=== PATIENT | female | born 1950 | race Caucasian/White ===

== ENCOUNTER 2016-11-08 16:59 | Inpatient (IN) | payer OTHER ==
[~2016-11-08] VITALS: Ht 172.7 cm; Wt 107.0 kg
[~2016-11-08 16:59] MED LIST: Ecotrin PO; KlonoPIN PO; LOPRESSOR50 MG PO; Levaquin PO; NEXIUM40 MG PO; PLAVIX75 MG PO; Plavix PO; SERTRALINE HCL100 MG PO; SYNTHROID125 MCG PO; TOPAMAX100 MG PO; Ultram PO; VALIUM5 MG PO; ZESTORETIC 20-1 EAC1 PO
[2016-11-08 17:35] LABS: HEMATOCRIT 37.5 % (36.0-46.0); MCH 30.3 PG (29.0-34.0); MCHC 32.8 G/DL (30.0-36.0); MCV 92.4 FL (83-99); MEAN PLAT.VOLUME 9.1 uM^3 (9.5-12.4); PLATELET COUNT 254 K/uL (156-360); RBC DIS.WIDTH-CV 13.9 % (11.8-14.6); RBC DIS.WIDTH-SD 47.3 % (39-53); RED BLOOD COUNT 4.06 M/uL (3.80-5.20); WHITE BLOOD COUNT 22.2 K/uL (4.1-10.2)
[2016-11-08 17:48] LABS: CHLORIDE 101 mEq/L (99-109); POTASSIUM 4.3 mEq/L (3.7-5.4); SODIUM 140 mEq/L (136-147)
[2016-11-08 17:50] LABS: GLUCOSE 107 mg/dL (70-99)
[2016-11-08 17:51] LABS: ANION GAP 10 MEQ/L (2-14)
[2016-11-08 17:53] LABS: GFR ESTIMATE (CALCULATED) 53 mL/min/
[2016-11-08 17:54] LABS: UREA NITROGEN (BUN) 24 mg/dL (9-23)
[2016-11-08 17:58] LABS: TROP-I INTERPRETATION NEGATIVE; TROPONIN-I < 0.01 ng/mL (0.0-0.30)
[2016-11-08 20:20] LABS: D-DIMER ELISA 0.45 mg/L FEU (< 0.57)
[2016-11-08 21:26] LABS: INFLUENZA A VIRAL ANTIGEN NEGATIVE; INFLUENZA B VIRAL ANTIGEN NEGATIVE
[2016-11-08] MEDS ORDERED: METOPROLOL SUCC25 MG PO (22:45)
[2016-11-08] MEDS ORDERED: ECOTRIN325 MG PO (22:47)
[2016-11-08] MEDS ORDERED: GLUCOSAMINE CH1 EAC2 PO (22:47)
[2016-11-08] MEDS ORDERED: PLAVIX75 MG PO (22:47)
[2016-11-08] MEDS ORDERED: NEXIUM40 MG PO (22:48)
[2016-11-08] MEDS ORDERED: SIMVASTATIN40 MG PO (22:49)
[2016-11-08] MEDS ORDERED: MELOXICAM15 MG PO (22:49)
[2016-11-09 00:36] LABS: TROP-I INTERPRETATION NEGATIVE; TROPONIN-I < 0.01 ng/mL (0.0-0.30)
[2016-11-09 01:00] VITALS: BP 103/67
[2016-11-09 03:08] VITALS: BP 105/57
[2016-11-09 08:44] VITALS: BP 109/73
[2016-11-09 08:58] LABS: TROP-I INTERPRETATION NEGATIVE; TROPONIN-I < 0.01 ng/mL (0.0-0.30)
[2016-11-09 08:59] LABS: HEMATOCRIT 34.6 % (36.0-46.0); MCH 30.1 PG (29.0-34.0); MCHC 31.8 G/DL (30.0-36.0); MCV 94.5 FL (83-99); MEAN PLAT.VOLUME 9.4 uM^3 (9.5-12.4); PLATELET COUNT 222 K/uL (156-360); RBC DIS.WIDTH-CV 14.6 % (11.8-14.6); RBC DIS.WIDTH-SD 51.2 % (39-53); RED BLOOD COUNT 3.66 M/uL (3.80-5.20)
[2016-11-09 09:12] LABS: WHITE BLOOD COUNT 13.2 K/uL (4.1-10.2)
[2016-11-09] MEDS ORDERED: PROVENTIL HFA6.7 GM IH (11:32)
[2016-11-09] MEDS ORDERED: NITROSTAT0.4 MG SL (11:32)
[2016-11-09] MEDS ORDERED: AZITHROMYCIN500 M1 PO ×2 (11:32→11:35)
[2016-11-09] MEDS ORDERED: BENZONATATE200 MG PO (11:36)
[2016-11-09 12:31] VITALS: BP 90/60
[2016-11-09 14:33] LABS: EOSINOPHIL (%) 0.3 % (0-5); HEMATOCRIT 35.9 % (36.0-46.0); IMMATURE GRANULOCYTE (%) 0.7 % (0.0-0.7); IMMATURE GRANULOCYTE COUNT 0.1 K/uL; INSTRUMENT ABS NEUTROPHIL CT 10.8 K/uL; LYMPHOCYTE COUNT 0.7 K/uL (1.0-2.8); MCH 30.3 PG (29.0-34.0); MCHC 32.6 G/DL (30.0-36.0); MEAN PLAT.VOLUME 8.9 uM^3 (9.5-12.4); MONOCYTE (%) 0.6 % (3-12); MONOCYTE COUNT 0.1 K/uL (0-0.8); NEUTROPHIL (%) 92.1 % (45-76); NEUTROPHIL COUNT 10.8 K/uL (1.8-6.4); PLATELET COUNT 239 K/uL (156-360); RBC DIS.WIDTH-CV 14.5 % (11.8-14.6); RBC DIS.WIDTH-SD 49.9 % (39-53); RED BLOOD COUNT 3.86 M/uL (3.80-5.20); WHITE BLOOD COUNT 11.7 K/uL (4.1-10.2)
[2016-11-09 16:00] VITALS: BP 119/63
[2016-11-09 19:33] VITALS: BP 130/75
[2016-11-09 23:14] LABS: ADD MIUA? YES; BILIRUBIN NEGATIVE; BLOOD SMALL; COLOR YELLOW ((YELLOW)); GLUCOSE (STRIP) NEGATIVE; KETONES NEGATIVE; LEUKOCYTES TRACE; NITRITE NEGATIVE; PROTEIN (STRIP) NEGATIVE; UROBILINOGEN 0.2 MG/DL (0.2-1.0)
[2016-11-09 23:17] LABS: BACTERIA RARE /HPF; EPITHELIAL CELLS 1+ /HPF; MUCUS TRACE /LPF; RED BLOOD CELLS 0-5 /HPF (0-5); UCUL ADDED? NO; WHITE BLOOD CELLS 0-5 /HPF (0-5)
[2016-11-10] VITALS (10 sets, daily range): BP systolic 113–178; BP diastolic 65–90
[2016-11-10 09:06] LABS: HEMATOCRIT 34.2 % (36.0-46.0); MCH 29.8 PG (29.0-34.0); MCHC 32.2 G/DL (30.0-36.0); MCV 92.7 FL (83-99); MEAN PLAT.VOLUME 9.9 uM^3 (9.5-12.4); PLATELET COUNT 237 K/uL (156-360); RBC DIS.WIDTH-CV 14.2 % (11.8-14.6); RBC DIS.WIDTH-SD 48.7 % (39-53); RED BLOOD COUNT 3.69 M/uL (3.80-5.20); WHITE BLOOD COUNT 14.8 K/uL (4.1-10.2)
[2016-11-10 10:33] LABS: BASE EXCESS 4.7 mEq/L (-3 to +3); BICARBONATE 29.2 mEq/L (22-26); CARBOXY HGB 2.9 % (0-5); COMMENTS - BLOOD GASES A+C+; DEVICE NC; METHEMOGLOBIN 1.6 % (0-1.5); O2 FLOW 1 L/MIN; PCO2 42 mm Hg (35-45); PO2 61 mm Hg (80-100); SITE RR; pH 7.45 (7.35-7.45)
[2016-11-10 10:34] LABS: TOTAL RESP RATE 16 resp/min
[2016-11-11 03:39] VITALS: BP 147/84
[2016-11-11 07:15] VITALS: BP 130/79
[2016-11-11 07:28] LABS: EOSINOPHIL (%) 0.1 % (0-5); HEMATOCRIT 35.3 % (36.0-46.0); IMMATURE GRANULOCYTE (%) 1.1 % (0.0-0.7); IMMATURE GRANULOCYTE COUNT 0.2 K/uL; INSTRUMENT ABS NEUTROPHIL CT 13.6 K/uL; LYMPHOCYTE COUNT 1.5 K/uL (1.0-2.8); MCH 29.9 PG (29.0-34.0); MCHC 32.6 G/DL (30.0-36.0); MCV 91.7 FL (83-99); MEAN PLAT.VOLUME 9.8 uM^3 (9.5-12.4); MONOCYTE (%) 3.7 % (3-12); MONOCYTE COUNT 0.6 K/uL (0-0.8); NEUTROPHIL (%) 85.6 % (45-76); NEUTROPHIL COUNT 13.6 K/uL (1.8-6.4); PLATELET COUNT 277 K/uL (156-360); RBC DIS.WIDTH-CV 14.4 % (11.8-14.6); RBC DIS.WIDTH-SD 48.5 % (39-53); RED BLOOD COUNT 3.85 M/uL (3.80-5.20); WHITE BLOOD COUNT 15.9 K/uL (4.1-10.2)
[2016-11-11 07:44] LABS: ALKALINE PHOSPHATASE 102 IU/L (3-129); ANION GAP 10 MEQ/L (2-14); CHLORIDE 103 MEQ/L (99-109); GFR ESTIMATE (CALCULATED) > 59 mL/min/; GLUCOSE 119 mg/dL (70-99); POTASSIUM 4.6 MEQ/L (3.7-5.4); SAMPLE HEMOLYSIS CHECK 0; SAMPLE ICTERIC CHECK 0; SAMPLE LIPEMIA CHECK 0; SODIUM 139 MEQ/L (136-147); TOTAL BILIRUBIN 0.4 MG/DL (0.0-1.0); UREA NITROGEN (BUN) 22 mg/dL (9-23)
[2016-11-11] MEDS ORDERED: PROVENTIL HFA6.7 GM IH (10:48)
[2016-11-11] MEDS ORDERED: ADVAIR HFA120 INHALA IH (10:48)
[2016-11-11] MEDS ORDERED: PREDNISONE10 MG PO (10:48)
[2016-11-11] MEDS ORDERED: SPIRIVA RESPIMAT4 GM IH (10:48)
[2016-11-11] MEDS ORDERED: LEVAQUIN750 MG PO (10:48)
[2016-11-11 10:55] VITALS: BP 164/86
== END 2016-11-11 15:26 | disposition home or self-care (01) | DRG 871 ==
LOC: EME 16:59 → EDOF 22:08 → 5WEST 22:08 → 2EAST 11-09 13:53 → 5WEST 11-09 13:53 → 2EAST 11-09 15:49
PROVIDERS: Emergency Medicine; Family Medicine; Hospitalist; Nurse Practitioner Adult Health
DX: A41.9 Sepsis, unspecified organism (principal); J96.01 Acute respiratory failure with hypoxia; J44.1 Chronic obstructive pulmonary disease with (acute) exacerbation; F32.9 Major depressive disorder, single episode, unspecified; E78.5 Hyperlipidemia, unspecified; K21.9 Gastro-esophageal reflux disease without esophagitis; Z86.73 Personal history of transient ischemic attack (TIA), and cerebral infarction without residual deficits; E03.9 Hypothyroidism, unspecified; Z88.8 Allergy status to other drugs, medicaments and biological substances; Z91.040 Latex allergy status; Z79.82 Long term (current) use of aspirin; R01.1 Cardiac murmur, unspecified; E83.52 Hypercalcemia; R79.89 Other specified abnormal findings of blood chemistry; R07.89 Other chest pain; Z77.22 Contact with and (suspected) exposure to environmental tobacco smoke (acute) (chronic); N18.3 Chronic kidney disease, stage 3 (moderate); I12.9 Hypertensive chronic kidney disease with stage 1 through stage 4 chronic kidney disease, or unspecified chronic kidney disease; R51 Headache
CPT/HCPCS: 36600; 70450; 71020; 71275; 80048; 80053; 81003; 82803; 83605; 83880; 84484; 85025; 85027; 85379; 87040; 87086; 87502; 93005; 93306; 94640; 94640 76; 94667; 94668; 94760; 94799; 99202; 99281; 99285; G0378; J0696; J1200; J1650; J1885; J2270; J2405; J2920; J7030; J7050